=== PATIENT | male | born 1965 | race Caucasian/White ===

== ENCOUNTER 2019-05-28 07:58 | Observation (INO) | payer OTHER ==
[2019-05-28] MEDS ORDERED: Sodium Chloride 0.9% 10 ML Syringe FLUSH PRN (08:07)
[2019-05-28] MEDS ORDERED: Sodium Chloride 0.9% 2.5 ML Syringe FLUSH PRN (08:07)
--- NOTE | 2019-05-28 08:13 | EDM.PDOC ---
ED HPI GENERAL MEDICAL PROBLEM - General Chief Complaint: Trauma Stated Complaint: TRAUMA ALERT Time Seen by Provider: 05/28/19 08:10 - History of Present Illness INITIAL COMMENTS - FREE TEXT/NARRATIVE: HISTORY AND PHYSICAL: History of present illness: Patient's 53-year-old white male presents status post event described as having walked out of his home possibly out of the wrong door and accident and fell with loss of consciousness remains unclear as to the circumstances of this event and the possibility of a syncopal episode as opposed to a fall with associated head injury and loss of consciousness on arrival here patient has multiple abrasions and contusions but denies any headache nausea vomiting neck pain chest pain palpitations shortness of breath and apart from abrasions to his anterior chest and some ecchymosis of his left periorbital area he is without injury. He denies drug or alcohol or other concern. Review of systems: As per history of present illness and below otherwise all systems reviewed and negative. Past medical history: As per history of present illness and as reviewed below otherwise noncontributory. Surgical history: As per history of present illness and as reviewed below otherwise noncontributory. Social history: No reported history of drug or alcohol abuse. Family history: As per history of present illness and as reviewed below otherwise noncontributory. Physical exam: HEENT: Small ecchymosis noted left periorbital region no bony step-off no depression ", normocephalic, pupils reactive, negative for conjunctival pallor or scleral icterus, mucous membranes moist, throat clear, neck supple, nontender , trachea midline. Lungs: Clear to auscultation, breath sounds equal bilaterally, chest nontender multiple abrasions noted anterior chest. Heart: S1S2, regular, negative for clicks, rubs, or JVD. Abdomen: Soft, nondistended, nontender. Negative for masses or hepatosplenomegaly. Negative for costovertebral tenderness. Pelvis: Stable nontender. Genitourinary: Deferred. Rectal: Deferred. Extremities: Atraumatic, negative for cords or calf pain. Neurovascular unremarkable. Neuro: Awake, alert, oriented. Cranial nerves II through XII unremarkable. Cerebellum unremarkable. Motor and sensory unremarkable throughout. Exam nonfocal. Diagnostics: CBC CMP troponin PT/INR chest x-ray EKG CT brain UA UDS EtOH Therapeutics: Saline 1 L bolus quality assurance monitor final Impression: #1 fall #2 multiple abrasions contusions #3 minor head injury with LOC #4 rule out syncope Definitive disposition and diagnosis as appropriate pending reevaluation and review of above. - Related Data Allergies Allergy/AdvReac Type Severity Reaction Status Date / Time No Known Allergies Allergy Verified 05/28/19 08:11 Home Meds: Home Meds . [No Known Home Meds] 05/28/19 [History] Review of Systems - Review of Systems Review Of Systems: ROS reveals no pertinent complaints other than HPI. ED EXAM, GENERAL - Physical Exam Exam: See Below (See dictation) Course - Vital Signs Last Recorded V/S: Last Vital Signs Temp 36.2 C 05/28/19 08:09 Pulse 72 05/28/19 08:09 Resp 16 05/28/19 08:09 BP 135/93 H 05/28/19 08:09 Pulse Ox 98 05/28/19 08:09 - Orders/Labs/Meds Orders: Active Orders 24 hr Category Date Time Status Cardiac Monitoring [RC] . DIRECTED Care 05/28/19 08:07 Active EKG Documentation Completion [RC] STAT Care 05/28/19 08:07 Active DRUG SCREEN, URINE [URCHEM] Stat Lab 05/28/19 08:46 Received UA RFX PIPPA AND CULT IF INDIC [URIN] Stat Lab 05/28/19 08:46 Received Sodium Chloride 0.9% [Normal Saline] 1,000 ml Med 05/28/19 08:15 Active IV STAT Sodium Chloride 0.9% [Saline Flush] Med 05/28/19 08:07 Active 10 ml FLUSH ASDIRECTED PRN Sodium Chloride 0.9% [Saline Flush] Med 05/28/19 08:07 Active 2.5 ml FLUSH ASDIRECTED PRN Saline Lock Insert [OM.PC] Stat Oth 05/28/19 08:07 Ordered Medication Orders Sodium Chloride (Normal Saline) 1,000 mls @ 999 mls/hr IV STAT EDIL Last Admin: 05/28/19 08:18 Dose: 999 mls/hr Sodium Chloride (Saline Flush) 10 ml FLUSH ASDIRECTED PRN PRN Reason: Keep Vein Open Last Admin: 05/28/19 08:19 Dose: 10 ml Sodium Chloride (Saline Flush) 2.5 ml FLUSH ASDIRECTED PRN PRN Reason: Keep Vein Open Last Admin: 05/28/19 08:19 Dose: 2.5 ml Labs: Laboratory Tests 05/28/19 05/28/19 05/28/19 Range/Units 08:12 08:12 08:12 WBC 7.86 (4.0-11.0) K/uL RBC 4.26 L (4.50-5.90) M/uL Hgb 14.5 (13.0-17.0) g/dL Hct 43.5 (38.0-50.0) % MCV 102.1 H (80.0-98.0) fL MCH 34.0 H (27.0-32.0) pg MCHC 33.3 (31.0-37.0) g/dL RDW Std Deviation 51.3 (28.0-62.0) fl RDW Coeff of Shu 14 (11.0-15.0) % Plt Count 235 (150-400) K/uL MPV 9.90 (7.40-12.00) fL Neut % (Auto) 67.6 (48.0-80.0) % Lymph % (Auto) 23.2 (16.0-40.0) % [place] % (Auto) 7.5 (0.0-15.0) % Eos % (Auto) 1.4 (0.0-7.0) % Baso % (Auto) 0.3 (0.0-1.5) % Neut # (Auto) 5.3 (1.4-5.7) K/uL Lymph # (Auto) 1.8 (0.6-2.4) K/uL [place] # (Auto) 0.6 (0.0-0.8) K/uL Eos # (Auto) 0.1 (0.0-0.7) K/uL Baso # (Auto) 0.0 (0.0-0.1) K/uL Nucleated RBC % 0.0 /100WBC Nucleated RBCs # 0 K/uL INR 0.98 Sodium 143 (136-148) mmol/L Potassium 4.0 (3.5-5.1) mmol/L Chloride 108 H (98-107) mmol/L Carbon Dioxide 23.6 (21.0-32.0) mmol/L BUN 10 (7.0-18.0) mg/dL Creatinine 1.0 (0.8-1.3) mg/dL Est Cr Clr Drug Dosing 86.18 mL/min Estimated GFR (MDRD) > 60.0 ml/min Glucose 86 (74-106) mg/dL Calcium 8.7 (8.5-10.1) mg/dL Total Bilirubin 0.4 (0.2-1.0) mg/dL AST 24 (15-37) IU/L ALT 30 (14-63) IU/L Alkaline Phosphatase 76 (46-116) U/L Troponin I < 0.050 (0.000-0.056) ng/mL Total Protein 6.3 L (6.4-8.2) g/dL Albumin 3.3 L (3.4-5.0) g/dL Globulin 3.0 (2.6-4.0) g/dL Albumin/Globulin Ratio 1.1 (0.9-1.6) Ethyl Alcohol 14 mg/dL Meds: Medications Generic Name Dose Route Start Last Admin Trade Name Freq PRN Reason Stop Dose Admin Sodium Chloride 1,000 mls @ 999 mls/hr 05/28/19 08:15 05/28/19 08:18 Normal Saline IV 999 mls/hr STAT EDIL Administration Sodium Chloride 10 ml 05/28/19 08:07 05/28/19 08:19 Saline Flush FLUSH 10 ml ASDIRECTED PRN Administration Keep Vein Open Sodium Chloride 2.5 ml 05/28/19 08:07 05/28/19 08:19 Saline Flush FLUSH 2.5 ml ASDIRECTED PRN Administration Keep Vein Open Departure - Departure Time of Disposition: 09:00 Disposition: Refer to Observation Condition: Good Clinical Impression: Fall, Head injury, Syncope - Discharge Information Referrals: PCP,Unknown [Primary Care Provider] - Forms: ED Department Discharge - My Orders Last 24 Hours: My Active Orders 05/28/19 08:07 Cardiac Monitoring [RC] . DIRECTED EKG Documentation Completion [RC] STAT Sodium Chloride 0.9% [Saline Flush] 10 ml FLUSH ASDIRECTED PRN Sodium Chloride 0.9% [Saline Flush] 2.5 ml FLUSH ASDIRECTED PRN Saline Lock Insert [OM.PC] Stat 05/28/19 08:15 Sodium Chloride 0.9% [Normal Saline] 1,000 ml IV STAT 05/28/19 08:46 DRUG SCREEN, URINE [URCHEM] Stat UA RFX PIPPA AND CULT IF INDIC [URIN] Stat - Assessment/Plan Last 24 Hours: My Active Orders 05/28/19 08:07 Cardiac Monitoring [RC] . DIRECTED EKG Documentation Completion [RC] STAT Sodium Chloride 0.9% [Saline Flush] 10 ml FLUSH ASDIRECTED PRN Sodium Chloride 0.9% [Saline Flush] 2.5 ml FLUSH ASDIRECTED PRN Saline Lock Insert [OM.PC] Stat 05/28/19 08:15 Sodium Chloride 0.9% [Normal Saline] 1,000 ml IV STAT 05/28/19 08:46 DRUG SCREEN, URINE [URCHEM] Stat UA RFX PIPPA AND CULT IF INDIC [URIN] Stat
[2019-05-28] MEDS ORDERED: Sodium Chloride 0.9% 1,000 ML IV SCH ×2 (08:15→11:45)
[2019-05-28 08:42] LABS: CHLORIDE,CL 108 mmol/L (98-107); SODIUM,NA 143 mmol/L (136-148)
--- NOTE | 2019-05-28 08:42 | CT ---
INDICATION: Trauma. Patient fell with head injury. COMPARISON: none TECHNIQUE: A CT volumetric acquisition was performed of the brain without IV contrast. FINDINGS: There is no evidence of a subdural or epidural hematoma. There is no evidence of subarachnoid hemorrhage or intraparenchymal bleeding. The CT images reveal a normal appearance of the cerebral ventricles and basal cisterns. There is no evidence of localized tissue infarction or mass effect. There is normal [place] white matter differentiation. The mastoid air cells and middle ear cavities are clear. The calvarium appears intact. There is normal aeration of the visualized paranasal sinuses. IMPRESSION: Negative head CT. Please note that all CT scans at this facility use dose modulation, iterative reconstruction, and/or weight-based dosing when appropriate to reduce radiation dose to as low as reasonably achievable. Dictated by Chago Cheek MD @ May 28 2019 8:38AM Signed by Dr. Chago Cheek @ May 28 2019 8:42AM
--- NOTE | 2019-05-28 08:44 | CR ---
Indication: Fall. Technique: A single AP portable view of the chest was obtained. Comparison: None Findings: The heart is normal in size. The right hemidiaphragm is elevated. The lungs are clear. No infiltrate, pleural effusion, or pneumothorax is identified. Impression: No acute cardiopulmonary process. Dictated by May Epstein MD @ May 28 2019 8:41AM Signed by Dr. May Epstein @ May 28 2019 8:42AM
--- NOTE | 2019-05-28 09:24 | PCM.HP.2 ---
H&P History of Present Illness - General Date of Service: 05/28/19 Admit Problem/Dx: Admission Diagnosis/Problem Admission Diagnosis/Problem Head injury with loss of consciousness Source of Information: Patient History Limitations: Reports: No Limitations - History of Present Illness Initial Comments - Free Text/Narative: The patient is an otherwise healthy 53-year-old gentleman who presented to the emergency department after falling out of his camper. The patient was initially assessed as a trauma code in the emergency department. The patient reports that he got up this morning and stepped out of his camper at a door he does not normally use and then dropped 3 feet to a concrete. The patient had imaging completed in the emergency department which did not show any sign of acute intracranial hemorrhage or fractures. The patient says that he had been unconscious for an unspecified period of time and then went back into his camper and fell asleep. The patient believes that he may have been unconscious for approximately 5-10 minutes. He did strike the left side of his forehead and eye. The patient has denied excessive alcohol use. The patient has denied any pain. He's had no dizziness or lightheadedness. No headache. Onset of Symptoms: Reports: Sudden Duration of Symptoms: Reports: Minutes: Location: Reports: Head Quality: Reports: Ache Severity: Mild Improves with: Reports: None Worsens with: Reports: None Context: Reports: Trauma Associated Symptoms: Reports: No Other Symptoms right knee Pain Score (Numeric/FACES): 6 Left Ear Pain Score (Numeric/FACES): 5 Left Forehead Pain Score (Numeric/FACES): 4 - Related Data Allergies/Adverse Reactions: Allergies Allergy/AdvReac Type Severity Reaction Status Date / Time No Known Allergies Allergy Verified 05/28/19 10:12 Home Medications: Home Meds . [No Known Home Meds] 05/28/19 [History] Past Medical History HEENT History: Reports: Impaired Vision Cardiovascular History: Reports: None Respiratory History: Reports: None Gastrointestinal History: Reports: Cholelithiasis Genitourinary History: Reports: None Musculoskeletal History: Reports: None Neurological History: Reports: None Psychiatric History: Reports: Anxiety, Depression Endocrine/Metabolic History: Reports: None Hematologic History: Reports: None Immunologic History: Reports: None Oncologic (Cancer) History: Reports: None Dermatologic History: Reports: None - Infectious Disease History Infectious Disease History: Reports: Chicken Pox - Past Surgical History Head Surgeries/Procedures: Reports: None HEENT Surgical History: Reports: None Cardiovascular Surgical History: Reports: None Respiratory Surgical History: Reports: None GI Surgical History: Reports: Bariatric Procedure Male Surgical History: Reports: None Endocrine Surgical History: Reports: None Neurological Surgical History: Reports: None Musculoskeletal Surgical History: Reports: None Oncologic Surgical History: Reports: None Dermatological Surgical History: Reports: None Social & Family History - Family History Family Medical History: Noncontributory - Tobacco Use Smoking Status *Q: Current Every Day Smoker Years of Tobacco use: 15 Packs/Tins Daily: 2 - Caffeine Use Caffeine Use: Reports: None - Recreational Drug Use Recreational Drug Use: No - Living Situation & Occupation Living situation: Reports: Single Occupation: Employed H&P Review of Systems - Review of Systems: Review Of Systems: See Below General: Reports: Weakness HEENT: Reports: Headaches Pulmonary: Reports: No Symptoms Cardiovascular: Reports: No Symptoms Gastrointestinal: Reports: No Symptoms Genitourinary: Reports: No Symptoms Musculoskeletal: Reports: No Symptoms Skin: Reports: Bruising Psychiatric: Reports: No Symptoms Neurological: Reports: No Symptoms Hematologic/Lymphatic: Reports: No Symptoms Immunologic: Reports: No Symptoms Exam - Exam Exam: See Below - Vital Signs Vital Signs: Last Vital Signs Temp 36.2 C 05/28/19 08:09 Pulse 72 05/28/19 08:09 Resp 16 05/28/19 08:09 BP 135/93 H 05/28/19 08:09 Pulse Ox 98 05/28/19 08:09 Weight: 113.398 kg - Exam Quality Assessment: No: Supplemental Oxygen General: Alert, Oriented, Cooperative HEENT: Conjunctiva Clear, EACs Clear, EOMI, Mucosa Moist & [place], Pupils Equal, PERRLA Neck: Supple, Trachea Midline Lungs: Clear to Auscultation, Normal Respiratory Effort Cardiovascular: Regular Rate, Regular Rhythm GI/Abdominal Exam: Normal Bowel Sounds, Soft, No Distention Back Exam: Normal Inspection, Full Range of Motion Extremities: Normal Inspection, No Pedal Edema Skin: Warm, Dry, Intact, Ecchymosis (Left upper and lower lid, left supraorbital area.) Neuro Extensive - Mental Status: Alert, Oriented x3, Normal Mood/Affect, Normal Cognition Neuro Extensive - Motor, Sensory, Reflexes: CN II-XII Intact, Normal Gait, Normal Reflexes Psychiatric: Alert, Normal Affect, Normal Mood - Patient Data Lab Results Last 24 hrs: Laboratory Results - last 24 hr 05/28/19 05/28/19 05/28/19 Range/Units 08:12 08:12 08:12 WBC 7.86 (4.0-11.0) K/uL RBC 4.26 L (4.50-5.90) M/uL Hgb 14.5 (13.0-17.0) g/dL Hct 43.5 (38.0-50.0) % MCV 102.1 H (80.0-98.0) fL MCH 34.0 H (27.0-32.0) pg MCHC 33.3 (31.0-37.0) g/dL RDW Std Deviation 51.3 (28.0-62.0) fl RDW Coeff of Shu 14 (11.0-15.0) % Plt Count 235 (150-400) K/uL MPV 9.90 (7.40-12.00) fL Neut % (Auto) 67.6 (48.0-80.0) % Lymph % (Auto) 23.2 (16.0-40.0) % [place] % (Auto) 7.5 (0.0-15.0) % Eos % (Auto) 1.4 (0.0-7.0) % Baso % (Auto) 0.3 (0.0-1.5) % Neut # (Auto) 5.3 (1.4-5.7) K/uL Lymph # (Auto) 1.8 (0.6-2.4) K/uL [place] # (Auto) 0.6 (0.0-0.8) K/uL Eos # (Auto) 0.1 (0.0-0.7) K/uL Baso # (Auto) 0.0 (0.0-0.1) K/uL Nucleated RBC % 0.0 /100WBC Nucleated RBCs # 0 K/uL INR 0.98 Sodium 143 (136-148) mmol/L Potassium 4.0 (3.5-5.1) mmol/L Chloride 108 H (98-107) mmol/L Carbon Dioxide 23.6 (21.0-32.0) mmol/L BUN 10 (7.0-18.0) mg/dL Creatinine 1.0 (0.8-1.3) mg/dL Est Cr Clr Drug Dosing 86.18 mL/min Estimated GFR (MDRD) > 60.0 ml/min Glucose 86 (74-106) mg/dL Calcium 8.7 (8.5-10.1) mg/dL Total Bilirubin 0.4 (0.2-1.0) mg/dL AST 24 (15-37) IU/L ALT 30 (14-63) IU/L Alkaline Phosphatase 76 (46-116) U/L Troponin I < 0.050 (0.000-0.056) ng/mL Total Protein 6.3 L (6.4-8.2) g/dL Albumin 3.3 L (3.4-5.0) g/dL Globulin 3.0 (2.6-4.0) g/dL Albumin/Globulin Ratio 1.1 (0.9-1.6) Urine Color Urine Appearance Urine pH (5.0-8.0) Ur Specific [place] (1.001-1.035) Urine Protein (NEGATIVE) mg/dL Urine Glucose (UA) (NEGATIVE) mg/dL Urine Ketones (NEGATIVE) mg/dL Urine Occult Blood (NEGATIVE) Urine Nitrite (NEGATIVE) Urine Bilirubin (NEGATIVE) Urine Urobilinogen (<2.0) EU/dL Ur Leukocyte Esterase (NEGATIVE) Urine Opiates Screen (NEGATIVE) Ur Oxycodone Screen (NEGATIVE) Urine Methadone Screen (NEGATIVE) Ur Barbiturates Screen (NEGATIVE) Ur Phencyclidine Scrn (NEGATIVE) Ur Amphetamine Screen (NEGATIVE) U Methamphetamines Scrn (NEGATIVE) U Benzodiazepines Scrn (NEGATIVE) U Cocaine Metab Screen (NEGATIVE) U Marijuana (THC) Screen (NEGATIVE) Ethyl Alcohol 14 mg/dL 05/28/19 05/28/19 Range/Units 08:46 08:46 WBC (4.0-11.0) K/uL RBC (4.50-5.90) M/uL Hgb (13.0-17.0) g/dL Hct (38.0-50.0) % MCV (80.0-98.0) fL MCH (27.0-32.0) pg MCHC (31.0-37.0) g/dL RDW Std Deviation (28.0-62.0) fl RDW Coeff of Shu (11.0-15.0) % Plt Count (150-400) K/uL MPV (7.40-12.00) fL Neut % (Auto) (48.0-80.0) % Lymph % (Auto) (16.0-40.0) % [place] % (Auto) (0.0-15.0) % Eos % (Auto) (0.0-7.0) % Baso % (Auto) (0.0-1.5) % Neut # (Auto) (1.4-5.7) K/uL Lymph # (Auto) (0.6-2.4) K/uL [place] # (Auto) (0.0-0.8) K/uL Eos # (Auto) (0.0-0.7) K/uL Baso # (Auto) (0.0-0.1) K/uL Nucleated RBC % /100WBC Nucleated RBCs # K/uL INR Sodium (136-148) mmol/L Potassium (3.5-5.1) mmol/L Chloride (98-107) mmol/L Carbon Dioxide (21.0-32.0) mmol/L BUN (7.0-18.0) mg/dL Creatinine (0.8-1.3) mg/dL Est Cr Clr Drug Dosing mL/min Estimated GFR (MDRD) ml/min Glucose (74-106) mg/dL Calcium (8.5-10.1) mg/dL Total Bilirubin (0.2-1.0) mg/dL AST (15-37) IU/L ALT (14-63) IU/L Alkaline Phosphatase (46-116) U/L Troponin I (0.000-0.056) ng/mL Total Protein (6.4-8.2) g/dL Albumin (3.4-5.0) g/dL Globulin (2.6-4.0) g/dL Albumin/Globulin Ratio (0.9-1.6) Urine Color YELLOW Urine Appearance CLEAR Urine pH 5.5 (5.0-8.0) Ur Specific [place] 1.025 (1.001-1.035) Urine Protein NEGATIVE (NEGATIVE) mg/dL Urine Glucose (UA) NEGATIVE (NEGATIVE) mg/dL Urine Ketones NEGATIVE (NEGATIVE) mg/dL Urine Occult Blood NEGATIVE (NEGATIVE) Urine Nitrite NEGATIVE (NEGATIVE) Urine Bilirubin NEGATIVE (NEGATIVE) Urine Urobilinogen 0.2 (<2.0) EU/dL Ur Leukocyte Esterase NEGATIVE (NEGATIVE) Urine Opiates Screen NEGATIVE (NEGATIVE) Ur Oxycodone Screen NEGATIVE (NEGATIVE) Urine Methadone Screen NEGATIVE (NEGATIVE) Ur Barbiturates Screen NEGATIVE (NEGATIVE) Ur Phencyclidine Scrn NEGATIVE (NEGATIVE) Ur Amphetamine Screen NEGATIVE (NEGATIVE) U Methamphetamines Scrn NEGATIVE (NEGATIVE) U Benzodiazepines Scrn NEGATIVE (NEGATIVE) U Cocaine Metab Screen NEGATIVE (NEGATIVE) U Marijuana (THC) Screen NEGATIVE (NEGATIVE) Ethyl Alcohol mg/dL Result Diagrams: 05/28/19 08:12 05/28/19 08:12 - Problem List (1) Head injury SNOMED Code(s): 93219149 ICD Code: S09.90XA - UNSPECIFIED INJURY OF HEAD, INITIAL ENCOUNTER Status: Acute Priority: High Current Visit: Yes Qualifiers: Encounter type: subsequent encounter Qualified Code(s): S09.90XD - Unspecified injury of head, subsequent encounter (2) Fall SNOMED Code(s): 5271459, 404716224 ICD Code: W19.XXXA - UNSPECIFIED FALL, INITIAL ENCOUNTER Status: Acute Priority: High Current Visit: Yes Qualifiers: Encounter type: subsequent encounter Qualified Code(s): W19.XXXD - Unspecified fall, subsequent encounter (3) Syncope SNOMED Code(s): 347133115 ICD Code: R55 - SYNCOPE AND COLLAPSE Status: Acute Priority: High Current Visit: Yes Qualifiers: Syncope type: unspecified Qualified Code(s): R55 - Syncope and collapse Problem List Initiated/Reviewed/Updated: Yes Orders Last 24hrs: Active Orders 24 hr Category Date Time Status Admission Status [Patient Status] [ADT] Stat ADT 05/28/19 09:06 Active Cardiac Monitoring [RC] . DIRECTED Care 05/28/19 08:07 Active EKG Documentation Completion [RC] STAT Care 05/28/19 08:07 Active Knee 3V Rt [CR] Stat Exams 05/28/19 09:01 Taken Sodium Chloride 0.9% [Normal Saline] 1,000 ml Med 05/28/19 08:15 Active IV STAT Sodium Chloride 0.9% [Saline Flush] Med 05/28/19 08:07 Active 10 ml FLUSH ASDIRECTED PRN Sodium Chloride 0.9% [Saline Flush] Med 05/28/19 08:07 Active 2.5 ml FLUSH ASDIRECTED PRN Saline Lock Insert [OM.PC] Stat Oth 05/28/19 08:07 Ordered Medication Orders Sodium Chloride (Normal Saline) 1,000 mls @ 999 mls/hr IV STAT EDIL Last Admin: 05/28/19 08:18 Dose: 999 mls/hr Sodium Chloride (Saline Flush) 10 ml FLUSH ASDIRECTED PRN PRN Reason: Keep Vein Open Last Admin: 05/28/19 08:19 Dose: 10 ml Sodium Chloride (Saline Flush) 2.5 ml FLUSH ASDIRECTED PRN PRN Reason: Keep Vein Open Last Admin: 05/28/19 08:19 Dose: 2.5 ml Assessment/Plan Comment:: The patient is an otherwise healthy 53-year-old gentleman who presented to the emergency department after an apparent fall. The patient did not have any evidence of intracranial hemorrhage or other fractures. As a result of this the patient was admitted after concern for syncope. The patient's exact circumstances to the injury are somewhat vague alert appears that he may have stepped off his camper 3-1/2 feet to a concrete platform. I've ordered an MRI for the morning to help exclude any cerebral contusions or otherwise punctate hemorrhaging. I do not believe this to be the case. The patient also will have DVT prophylaxis with the use of SCDs as there is a concern for occult hemorrhage intracranially. The patient has been encouraged to ambulate. Repeat laboratory studies been ordered. - Mortality Measure Prognosis:: Good
--- NOTE | 2019-05-28 09:39 | CR ---
Indication: Fall from 2 stairs. Technique: Three views of the right knee were obtained. Comparison: None Findings: Mild narrowing at the lateral compartment is identified. Moderate narrowing of the medial compartment is identified. Narrowing of the patellofemoral articulation is identified. No fracture or subluxation is identified. Impression: Degenerative change. Dictated by May Epstein MD @ May 28 2019 9:37AM Signed by Dr. May Epstein @ May 28 2019 9:38AM
[2019-05-28] MEDS ORDERED: Acetaminophen 325 MG Tab PO PRN (11:44)
[2019-05-28] MEDS ORDERED: Bisacodyl 5 MG Tab PO PRN (11:44)
[2019-05-28] MEDS ORDERED: Nicotine 14 MG/24 Hr Patch TRDERM SCH (11:45)
[2019-05-28] MEDS: Nicotine 14 MG/24 Hr Patch TRDERM SCH (13:01)
[2019-05-28] MEDS: oxyCODONE 5 MG Tab PO PRN ×2 (13:45→20:52)
[2019-05-29] MEDS: oxyCODONE 5 MG Tab PO PRN ×2 (01:53→09:17)
[2019-05-29 06:51] LABS: CHLORIDE,CL 108 mmol/L (98-107); SODIUM,NA 141 mmol/L (136-148)
--- NOTE | 2019-05-29 09:47 | MR ---
Indication: Head trauma, fell from can per steps. Technique: Performed without IV contrast. Comparison: None available. Findings: No mass lesion or ventricular obstruction. No evidence for recent or remote intracranial hemorrhage or infarct. No signal changes in the brain parenchyma. No intracranial fluid collections are identified. Grossly normal flow voids are maintained in the intracranial vascular structures. The craniovertebral junction is unremarkable, with a patent foramen magnum. Both temporal bones are well aerated. There is slight membrane thickening in the ethmoid paranasal sinuses. Impression: 1. The intracranial contents are negative. No evidence for hemorrhage, brain contusion, or subdural fluid collection. 2. Trace ethmoid paranasal sinus inflammatory change. Dictated by Amari Ku MD @ May 29 2019 9:46AM Signed by Dr. Amari Ku @ May 29 2019 9:46AM
--- NOTE | 2019-05-29 10:43 | PCM.DCSUM1 ---
Discharge Summary - Hospital Course Brief History: This 53-year-old gentleman who presented to the emergency department after falling out of his camper. The patient was initially assessed as a trauma code in the emergency department. The patient reports that he got up this morning and stepped out of his camper at a door he does not normally use and then dropped 3 feet to the concrete. He hit his head and then passed out for 5-10 minutes. His boss recommended evaluation for his fall since he hit his head. The patient had imaging completed in the emergency department which did not show any sign of acute intracranial hemorrhage or fractures. The patient has denied excessive alcohol use. The patient denied any pain. He's had no dizziness or lightheadedness. No headache. Diagnosis: Stroke: No - Discharge Data Discharge Date: 05/29/19 Discharge Disposition: Home, Self-Care 01 Condition: Stable - Discharge Diagnosis/Problem(s) (1) Fall SNOMED Code(s): 6104363, 721043951 ICD Code: W19.XXXA - UNSPECIFIED FALL, INITIAL ENCOUNTER Status: Acute Priority: High Current Visit: Yes Qualifiers: Encounter type: subsequent encounter Qualified Code(s): W19.XXXD - Unspecified fall, subsequent encounter (2) Concussion SNOMED Code(s): 495695506 ICD Code: S06.0X9A - CONCUSSION W LOSS OF CONSCIOUSNESS OF UNSP DURATION, INIT Status: Acute Current Visit: Yes Qualifiers: Encounter type: initial encounter Loss of consciousness presence/duration: with LOC of 30 min or less Qualified Code(s): S06.0X1A - Concussion with loss of consciousness of 30 minutes or less, initial encounter (3) Alcohol use SNOMED Code(s): 690782 ICD Code: Z72.89 - OTHER PROBLEMS RELATED TO LIFESTYLE Status: Chronic Current Visit: Yes (4) Head injury SNOMED Code(s): 18685937 ICD Code: S09.90XA - UNSPECIFIED INJURY OF HEAD, INITIAL ENCOUNTER Status: Acute Priority: High Current Visit: Yes Qualifiers: Encounter type: subsequent encounter Qualified Code(s): S09.90XD - Unspecified injury of head, subsequent encounter - Patient Instructions Diet: Regular Diet as Tolerated Activity: As Tolerated Driving: Do Not Drive (today) Showering/Bathing: May Shower Notify Provider of: Fever, Increased Pain, Swelling and Redness, Drainage, Nausea and/or Vomiting - Discharge Plan *PRESCRIPTION DRUG MONITORING PROGRAM REVIEWED*: Not Applicable *COPY OF PRESCRIPTION DRUG MONITORING REPORT IN PATIENT CLAUDETTE: Not Applicable Home Medications: Home Meds . [No Known Home Meds] 05/28/19 [History] Oxygen Therapy Mode: Room Air Patient Handouts: Head Injury, Adult, Fall Prevention in the Home, Adult, Syncope, [id number] Referrals: Hanna Bryant PA [Physician Senior Partner] - 06/09/19 8:00 am PCP,Unknown [Primary Care Provider] - - Discharge Summary/Plan Comment DC Time >30 min.: No Discharge Summary/Plan Comment: Admitting Diagnoses: Fall Head injury Discharge Diagnoses: Fall Concussion Other PMH: Alcohol use Ismael was admitted for a fall and subsequent head injury with this fall. Head CT on admission negative for intracranial process, he was admitted for possible syncope. He reports he thought he heard dogs barking and got up from sleep and walked to a door he normally used, but recently changed the stairs to the other door. He had tucked the collapsable stairs in the evening prior. He opened the door expecting stairs and fell the 3 feet to the ground striking the left side of his head. He then lost consciousness for the 5-10 minutes. He woke up went back to sleep. He then went to work and his boss insisted on him being evaluated. Telemetry has been negative, no arrhythmias. MRI of brain completed to rule out hemorrhage, this revealed no intracranial process, such as hemorrhage, brain contusion, subdural fluid collection. He is very eager to go home today. He denies blurred vision. Reports intermittent headache. Recommended to take Tylenol for this. He is to follow up with PCP in 1 week. He was encouraged to limit alcohol use and encouraged to quit smoking, both of which he is not ready to do at this time. He is to return to the ED or clinic if concerns should arise. - General Info Date of Service: 05/29/19 Admission Dx/Problem (Free Text: Admission Diagnosis/Problem Admission Diagnosis/Problem Head injury with loss of consciousness Subjective Update: Sitting up on the edge of bed, requesting discharge home. No chest pain or SOB. Reports mild headache. No blurred vision. Functional Status: Reports: Pain Controlled - Review of Systems General: Reports: No Symptoms. Denies: Fever, Weakness, Fatigue, Malaise HEENT: Reports: Headaches. Denies: Visual Changes Pulmonary: Reports: No Symptoms. Denies: Shortness of Breath Cardiovascular: Reports: No Symptoms. Denies: Chest Pain Gastrointestinal: Reports: No Symptoms. Denies: Abdominal Pain, Nausea, Vomiting Genitourinary: Reports: No Symptoms. Denies: Dysuria, Frequency, Burning Musculoskeletal: Reports: No Symptoms Skin: Reports: No Symptoms Neurological: Reports: No Symptoms Psychiatric: Reports: No Symptoms - Patient Data Vitals - Most Recent: Last Vital Signs Temp 97.6 F 05/29/19 07:15 Pulse 52 L 05/29/19 07:15 Resp 16 05/29/19 07:15 BP 109/62 05/29/19 07:15 Pulse Ox 96 05/29/19 07:15 Weight - Most Recent: 113.398 kg I&O - Last 24 hours: Intake & Output 05/28/19 05/29/19 05/29/19 22:59 06:59 14:59 Intake Total 400 790 Output Total 760 Balance 400 30 Lab Results - Last 24 hrs: Laboratory Results - last 24 hr 05/29/19 05/29/19 Range/Units 05:48 05:48 WBC 6.17 (4.0-11.0) K/uL RBC 3.96 L (4.50-5.90) M/uL Hgb 13.3 (13.0-17.0) g/dL Hct 40.9 (38.0-50.0) % MCV 103.3 H (80.0-98.0) fL MCH 33.6 H (27.0-32.0) pg MCHC 32.5 (31.0-37.0) g/dL RDW Std Deviation 52.6 (28.0-62.0) fl RDW Coeff of Shu 14 (11.0-15.0) % Plt Count 208 (150-400) K/uL MPV 10.60 (7.40-12.00) fL Neut % (Auto) 63.9 (48.0-80.0) % Lymph % (Auto) 26.3 (16.0-40.0) % Cooke % (Auto) 7.9 (0.0-15.0) % Eos % (Auto) 1.6 (0.0-7.0) % Baso % (Auto) 0.3 (0.0-1.5) % Neut # (Auto) 3.9 (1.4-5.7) K/uL Lymph # (Auto) 1.6 (0.6-2.4) K/uL Cooke # (Auto) 0.5 (0.0-0.8) K/uL Eos # (Auto) 0.1 (0.0-0.7) K/uL Baso # (Auto) 0.0 (0.0-0.1) K/uL Nucleated RBC % 0.0 /100WBC Nucleated RBCs # 0 K/uL Sodium 141 (136-148) mmol/L Potassium 4.4 (3.5-5.1) mmol/L Chloride 108 H (98-107) mmol/L Carbon Dioxide 25.5 (21.0-32.0) mmol/L BUN 12 (7.0-18.0) mg/dL Creatinine 1.0 (0.8-1.3) mg/dL Est Cr Clr Drug Dosing 88.90 mL/min Estimated GFR (MDRD) > 60.0 ml/min Glucose 90 (74-106) mg/dL Calcium 8.7 (8.5-10.1) mg/dL Med Orders - Current: Current Medications Acetaminophen (Tylenol) 650 mg PO Q4H PRN PRN Reason: Pain (Mild 1-3)/fever Bisacodyl (Dulcolax) 5 mg PO DAILY PRN PRN Reason: Constipation Sodium Chloride (Normal Saline) 1,000 mls @ 999 mls/hr IV STAT [facility] Last Admin: 05/28/19 08:18 Dose: 999 mls/hr Nicotine (Habitrol) 14 mg TRDERM DAILY@1300 [facility] Last Admin: 05/28/19 13:01 Dose: 14 mg Oxycodone HCl (Oxycodone) 5 mg PO Q4H PRN PRN Reason: Pain (moderate 4-6) Last Admin: 05/29/19 09:17 Dose: 5 mg Sodium Chloride (Saline Flush) 10 ml FLUSH ASDIRECTED PRN PRN Reason: Keep Vein Open Last Admin: 05/28/19 08:19 Dose: 10 ml Sodium Chloride (Saline Flush) 2.5 ml FLUSH ASDIRECTED PRN PRN Reason: Keep Vein Open Last Admin: 05/28/19 08:19 Dose: 2.5 ml Discontinued Medications Sodium Chloride (Normal Saline) 1,000 mls @ 75 mls/hr IV ASDIRECTED [facility] Last Admin: 05/28/19 12:56 Dose: 75 mls/hr Nicotine (Habitrol) 14 mg TRDERM DAILY [facility] Last Admin: 05/28/19 13:24 Dose: Not Given - Exam General: Reports: Alert, Oriented, Cooperative, No Acute Distress HEENT: Reports: Pupils Equal, Pupils Reactive Lungs: Reports: Clear to Auscultation, Normal Respiratory Effort Cardiovascular: Reports: Regular Rate, Regular Rhythm GI/Abdominal Exam: Normal Bowel Sounds, Soft, Non-Tender Extremities: Normal Inspection, Normal Range of Motion, Non-Tender, No Pedal Edema Skin: Reports: Other (abrasion and bruising to L latter day and ear. ) Neurological: Reports: No New Focal Deficit Psy/Mental Status: Reports: Alert, Normal Affect, Normal Mood *Q Meaningful Use (DIS) - VTE *Q VTE Pharmacological Contraindications *Q: Risk of Bleeding
[2019-05-29] MEDS: Nicotine 14 MG/24 Hr Patch TRDERM SCH (13:00)
== END 2019-05-29 12:20 | disposition home or self-care (01) ==
LOC: MW.ED 07:58 → MW.MS 09:10
PROVIDERS: ADMIT Internal Medicine; ATTEND Internal Medicine
DX: S06.0X1A Concussion with loss of consciousness of 30 minutes or less, initial encounter (principal); S00.81XA Abrasion of other part of head, initial encounter; F17.210 Nicotine dependence, cigarettes, uncomplicated; K80.20 Calculus of gallbladder without cholecystitis without obstruction; W17.89XA Other fall from one level to another, initial encounter
CPT/HCPCS: 36415; 70450; 70551; 71045; 73562; 80048; 80053; 80305; 81003; 84484; 85025; 85610; 93005; 96360; 99285; A9270; G0480; J7040; 99284; G0378